=== PATIENT | male | born 1940 | race American Indian/Alaskan Native ===

== ENCOUNTER 2022-06-04 15:51 | Emergency (ER) | payer MEDICARE, SELFPAY ==
--- NOTE | 2022-06-04 16:20 | ED.LOWEXIN ---
HPI - Extremity Injury (Lower) General Chief Complaint: Extremity Injury, Lower Stated Complaint: right hip and knee pain Time Seen by Provider: 06/04/22 16:26 Source: patient Mode of arrival: wheelchair History of Present Illness HPI Narrative: 81-year-old male with a past medical history of right knee replacement in March presenting to the ED complaining of continued right knee and hip pain s/p physical therapy after operation. States stopped PT secondary to pain, has been following with his orthopedic/PCP for this continued pain, had MRI of the hip yesterday (no results yet), and is scheduled for CT of the knee on the . Has been taking meloxicam without relief. Denies new or recent injury, trauma, numbness/tingling Onset (ago): month(s) Related Data Previous Rx's Medication Instructions Recorded cyclobenzaprine 5 mg tablet 5 mg PO Q8H PRN pain (scale score 06/04/22 7-10) 5 days #14 tabs lidocaine 5 % topical patch 1 patch topical DAILY PRN pain #30 06/04/22 (Lidoderm) ea tramadol 50 mg tablet 50 mg PO Q8H PRN pain, severe #9 06/04/22 tabs Allergies Allergy/AdvReac Type Severity Reaction Status Date / Time penicillin G [PENICILLIN G] Allergy Intermediate HIVES Unverified 04/04/20 14:37 Review of Systems Review of Systems: Constitutional: No Fever, No Chills ENT/Mouth: No Ear Pain, No Nasal Congestion, No Sinus Pain, No Hoarseness, No sore throat, No Rhinorrhea, No Swallowing Difficulty Cardiovascular: No Chest Pain, No SOB Respiratory: No Cough, No Sputum Gastrointestinal: No Nausea, No Vomiting, No Diarrhea, No Constipation, No Abdominal pain Genitourinary: No Dysuria, No Urinary Frequency, No Hematuria, No Flank Pain Musculoskeletal: + joint pain, No Myalgias, No Joint Swelling Skin: No Skin Lesions, No rash Neuro: No Weakness, No Numbness, No Paresthesias Yes all other systems are reviewed and are negative Constitutional: Constitutional: Reports as per [facility] Past Medical History Attestation statement: The following information was validated with the patient. Social History Social History Advance Directives: No Advance Directives Information Provided: Yes Physical Exam Vital Signs: Vital Signs: Last Vital Signs Temp 97.6 F 06/04/22 16:21 Pulse 89 06/04/22 16:21 Resp 18 06/04/22 16:21 BP 169/78 H 06/04/22 16:21 Pulse Ox 97 06/04/22 16:21 O2 Del Method 06/04/22 16:21 BMI result Body Mass Index 36.6 Const: General: cooperative, healthy appearing and no acute distress Orientation/consciousness: patient oriented x3 Limitations: no limitations HEENT: Head: Yes normal to inspection and Yes atraumatic Ears: hearing grossly normal bilaterally General nose exam: Normal external nose present Face and sinus: Yes normal facial exam Eyes: General: appearance normal, both eyes and all related structures EOM: EOMs intact bilaterally Neck: Neck: Yes normal visual inspection and Yes no meningeal signs Resp: Effort & Inspection: normal respiratory effort and no respiratory distress Cardio: Rate: regular rate Heart sounds: S1 normal heart sound present and S2 normal heart sound present Peripheral pulses: Peripheral pulses 2+ throughout GI: Inspection: Yes normal to inspection Palpation (GI): Soft to palpation, nontender, no guarding and not rigid Skin: Rashes: no rashes Wounds: no wounds Neuro: General: patient oriented x3, tone normal and no meningeal signs Gait exam (Neuro): Normal gait present Extrem: Other: Right hip nontender to palpation, full range of motion intact. + old surgical scar noted to right knee, mildly tender to palpation, full range of motion intact. Neurovascularly intact distally MDM - Extremity Injury (Lower) MDM Narrative Medical decision making narrative: 81-year-old male with a past medical history of right knee replacement in March presenting to the ED complaining of continued right knee and hip pain s/p physical therapy after operation. On exam vital signs stable, NAD, nontoxic-appearing, physical exam as above. Concern for MSK pain/strain vs arthritic changes. Concern for pain due to muscles that have not been used for years. Low suspicion for fracture, no evidence of infarction/septic joint Pain management, recommended to continue follow-up with a specialists Medical Records Attestation: I reviewed the patient's medical records. Lab Data Attestation: I reviewed the patient's lab results. Discharge Plan Discharge Clinical Impression: Knee pain, Hip pain Patient Disposition: Home, Self-Care Instructions: Knee Pain (ED), Hip Pain (ED) Additional Instructions: Continue to follow up with your specialist. Flexeril as a muscle relaxer, take at night as it makes you drowsy, do not drive, drink alcohol, or operate machinery while taking Additional treatment goals and opiate pain medication, do not drive, drink alcohol, or operate anything while taking. Apply ice or heat. Continue taking previously prescribed medications Prescriptions: New lidocaine [Lidoderm] 5 % adhesive patch,medicated 1 patch topical DAILY MDD remove after 12 hours PRN (Reason: pain) Qty: 30 0RF Rx Instructions: leave on most painful area for up to 12 hrs cyclobenzaprine 5 mg tablet 5 mg PO Q8H PRN (Reason: pain (scale score 7-10)) 5 Days Qty: 14 0RF tramadol 50 mg tablet 50 mg PO Q8H PRN (Reason: pain, severe) Qty: 9 0RF Referrals: [facility] [place] [facility] [Provider Group] Interventions: ED Discharge Assessment Last Done: 06/04/22 16:35
[2022-06-04 16:21] VITALS: BP 169/78; PULSE 89; RESP 18; TEMP 36.4; O2SAT 97; BMI 36.6
[2022-06-04] MEDS: Cyclobenzaprine HCl 10 MG TABLET PO (16:33)
== END 2022-06-04 16:40 | disposition home or self-care (01) ==
LOC: HO.ED 16:34
PROVIDERS: Emergency Provider Emergency Medicine
DX: M25.561 Pain in right knee (principal); M25.551 Pain in right hip; Z79.899 Other long term (current) drug therapy
CPT/HCPCS: 99283

== ENCOUNTER 2023-01-31 06:51 | Emergency (ER) | payer MEDICARE, SELFPAY ==
--- NOTE | ~2023-01-31 | XR_ITS ---
EXAMINATION: XR CHEST CLINICAL INFORMATION: Shortness of breath. COMPARISON: None available. TECHNIQUE: Frontal view of the chest was obtained. FINDINGS: No significant abnormality is noted involving the heart, lungs, mediastinum, bony thorax or soft tissues. XR/XR chest 1V IMPRESSION: No acute cardiopulmonary process.
[2023-01-31 06:52] VITALS: BP 155/76; PULSE 101; RESP 18; TEMP 36.9; O2SAT 95; BMI 35.4
--- NOTE | 2023-01-31 07:04 | ECG_ITS ---
Test Reason : TACHACARDIC Blood Pressure : / mmHG Vent. Rate : 091 BPM Atrial Rate : 091 BPM P-R Int : 194 ms QRS Dur : 106 ms QT Int : 350 ms P-R-T Axes : 039 024 038 degrees QTc Int : 430 ms Normal sinus rhythm Low voltage QRS Incomplete right bundle branch block Borderline ECG No previous ECGs available Referred By: Otilia Luevano Electronically Signed By:Leonardo Antonio
[2023-01-31 07:16] LABS: COVID-19 Test Positive (Negative); IDNOW Serial# 6674DD1D
[2023-01-31 07:28] VITALS: BP 151/71; PULSE 94; RESP 16; TEMP 37.1; O2SAT 96
--- NOTE | 2023-01-31 07:30 | PC.NURSE ---
pt a&ox3, vss, pt states that his cough is more harsh than usual, lung sounds clear bilaterally upon auscultation, pt states 0/10 pain level but states that he has a sore throat, call jacobson placed within reach, will continue to monitor.
[2023-01-31 07:37] VITALS: O2SAT 96
--- NOTE | 2023-01-31 07:46 | PC.NURSE ---
pt a&ox3, vss, nsr on the monitoring analyst, provider bedside doing initial assessment, pt coming in because he is looking for medication to relieve symptoms of covid, provider notifed pt that we do not give this medication in the ED but pt states that when his came in the other day she received this medication in the ED.
--- NOTE | 2023-01-31 07:54 | ED_ITS ---
HPI - URI/Sore Throat General Chief Complaint: Upper Respiratory Symptoms Stated Complaint: covid + rapid heart beat fever Time Seen by Provider: 01/31/23 07:04 Source: patient Mode of arrival: ambulatory History of Present Illness HPI Narrative: 82-year-old male with history of diabetes presents with complaints of flu-like symptoms, positive COVID exposure from his on 01/27 and states that he tested positive all in 01/28 and found to be COVID positive. Patient is taking all of his medications at present and is requesting Paxlovid. Related Data Previous Rx's Medication Instructions Recorded cyclobenzaprine 5 mg tablet 5 mg PO Q8H PRN pain (scale score 06/04/22 7-10) 5 days #14 tabs lidocaine 5 % topical patch 1 patch topical DAILY PRN pain #30 06/04/22 (Lidoderm) ea tramadol 50 mg tablet 50 mg PO Q8H PRN pain, severe #9 06/04/22 tabs Allergies Allergy/AdvReac Type Severity Reaction Status Date / Time penicillin G [PENICILLIN G] Allergy Intermediate HIVES Unverified 04/04/20 14:37 Review of Systems Review of Systems: Pertinent positives and negatives as stated in HPI PMFSH Past Medical History Source: nursing notes reviewed Medical History Aortic aneurysm Social History Social History Alcohol intake: current Alcohol intake frequency: holidays/special occasions only Smoked in Last 30 Days: No Use of substances other than those prescribed or required for medical reasons: No Advance Directives: No Advance Directives Information Provided: Yes Physical Exam Vital Signs: Vital Signs: Last Vital Signs Temp 98.7 F 01/31/23 07:28 Pulse 94 01/31/23 07:28 Resp 16 01/31/23 07:28 BP 151/71 H 01/31/23 07:28 Pulse Ox 96 01/31/23 07:37 O2 Del Method Room Air 01/31/23 07:37 BMI result Body Mass Index 35.4 VITAL SIGNS: Reviewed. GENERAL: Well developed, well nourished, in no acute distress. HEAD: Normocephalic/atraumatic EYES: PERRLA, EOMI EARS: Ext canals without abnormality NOSE: Nares patent bilateral OROPHARYNX: no oral lesions noted, posterior pharynx clear and non-erythematous without noted tonsillar enlargement/erythema/exudates NECK: Supple, no adenopathy LUNGS: Normal breath sounds. No adventitious sounds or accessory muscle use. SpO2<96> CARDIOVASCULAR: Regular rate and rhythm without noted murmurs, no JVD or lower extremity edema. ABDOMEN: Soft, non-tender, non-distended with bowel sounds MUSCULOSKELETAL: No tenderness, deformities, or effusions noted on gross inspection. EXTREMITIES: No cyanosis, clubbing or edema. SKIN: Inspection of the skin reveals no rashes NEUROLOGIC: Alert and oriented x 4. Strength and sensation to light touch were grossly intact x 4. Medical Decision Making Medical Decision Making [facility] Narrative: 82-year-old male with history and clinical presentation consistent with viral syndrome, DDX: Viral syndrome, COVID, pneumonia, CHF. I discussed with the patient that he is out of the window for treatment initiation given 72 hours, I also discussed with him the limitations of the medication in terms of symptom reduction by 24 hours and that there are a host of medication interactions. Patient otherwise denies any chest pain/palpitations and denies any GI or symptoms. I reviewed all investigations, hematologic indices demonstrate normocytic anemia likely associated with chronic disease as there is no history or clinical findings bleeding, mild leukopenia and thrombocytopenia that are likely associated with viral illness. I reviewed chemistry indices which appear to be grossly within normal limits without evidence of ANU or electrolyte derangements and liver enzymes are within normal limits. COVID-19 is positive. Is my interpretation that patient is experiencing viral syndrome and is COVID positive but out of the window for Paxlovid. Differential Diagnosis Differential Diagnoses: The differential diagnosis associated with the presentation includes Please see the discussion above Lab Data [facility] Lab Attestation statement: I reviewed the patient's lab results. Please see the discussion above 01/31/23 07:54 01/31/23 07:54 Labs: Lab Results 01/31/23 01/31/23 01/31/23 Range/Units 07:01 07:54 07:54 WBC 4.7 L (4.8-10.8) X10*3/uL RBC 4.37 L (4.60-5.80) X10*6/uL Hgb 12.6 L (14.0-18.0) g/dl Hct 37.8 L (42.0-52.0) % MCV 86.5 (80.0-98.0) fL MCH 28.8 (27.0-33.0) pg MCHC 33.3 (31.0-36.0) g/dl RDW 13.3 (11.0-16.0) % Plt Count 122 L (160-400) X10*3/uL MPV 12.6 H (9.4-12.4) fL Immature Gran % (Auto) 0.6 H (0.0-0.4) % Neut % (Auto) 65.4 (45-73) % Lymph % (Auto) 13.8 L (20-40) % [place] % (Auto) 17.6 H (2-11) % Eos % (Auto) 1.5 (0-4) % Baso % (Auto) 1.1 (0-2) % Lymph # (Auto) 0.7 L (1.2-4.9) X10*3/uL [place] # (Auto) 0.8 (0.1-1.2) X10*3/uL Eos # (Auto) 0.1 (0.0-0.4) X10*3/uL Baso # (Auto) 0.1 (0.0-0.2) X10*3/uL Abs Immat Gran (auto) 0.03 (0.00-0.03) X10*3/uL Absolute Neuts (auto) 3.1 (2.0-8.3) x10*3/uL Absolute Nucleated RBC 0.000 (0.0-0.012) X10*3/uL Nucleated RBC % (auto) 0.0 (0.0-0.2) /100WBC Sodium 139 (135-145) mmol/L Potassium 4.5 (3.3-5.1) mmol/L Chloride 105 (96-108) mmol/L Carbon Dioxide 23 (22-29) mmol/L Anion Gap 16 (12-20) BUN 20 H (9-16) mg/dL Creatinine 1.29 (0.5-1.4) mg/dL Estim Creat Clear Calc 54.6 Estimated GFR 53 Random Glucose 168 H (60-115) mg/dL Calcium 9.8 (8.4-10.2) mg/dL Total Bilirubin 0.5 (0.0-1.0) mg/dL AST 30 (5-37) U/L ALT 26 (0-40) U/L Alkaline Phosphatase 88 (39-117) U/L B-Natriuretic Peptide (<100) pg/mL Total Protein 7.0 (6.5-8.0) g/dL Albumin 3.8 (3.5-5.0) g/dL COVID-19 ([facility]) Positive A (Negative) COVID-19 Clin Com See Note 01/31/23 Range/Units 07:54 WBC (4.8-10.8) X10*3/uL RBC (4.60-5.80) X10*6/uL Hgb (14.0-18.0) g/dl Hct (42.0-52.0) % MCV (80.0-98.0) fL MCH (27.0-33.0) pg MCHC (31.0-36.0) g/dl RDW (11.0-16.0) % Plt Count (160-400) X10*3/uL MPV (9.4-12.4) fL Immature Gran % (Auto) (0.0-0.4) % Neut % (Auto) (45-73) % Lymph % (Auto) (20-40) % [place] % (Auto) (2-11) % Eos % (Auto) (0-4) % Baso % (Auto) (0-2) % Lymph # (Auto) (1.2-4.9) X10*3/uL [place] # (Auto) (0.1-1.2) X10*3/uL Eos # (Auto) (0.0-0.4) X10*3/uL Baso # (Auto) (0.0-0.2) X10*3/uL Abs Immat Gran (auto) (0.00-0.03) X10*3/uL Absolute Neuts (auto) (2.0-8.3) x10*3/uL Absolute Nucleated RBC (0.0-0.012) X10*3/uL Nucleated RBC % (auto) (0.0-0.2) /100WBC Sodium (135-145) mmol/L Potassium (3.3-5.1) mmol/L Chloride (96-108) mmol/L Carbon Dioxide (22-29) mmol/L Anion Gap (12-20) BUN (9-16) mg/dL Creatinine (0.5-1.4) mg/dL Estim Creat Clear Calc Estimated GFR Random Glucose (60-115) mg/dL Calcium (8.4-10.2) mg/dL Total Bilirubin (0.0-1.0) mg/dL AST (5-37) U/L ALT (0-40) U/L Alkaline Phosphatase (39-117) U/L B-Natriuretic Peptide 22 (<100) pg/mL Total Protein (6.5-8.0) g/dL Albumin (3.5-5.0) g/dL COVID-19 ([facility]) (Negative) COVID-19 Clin Com Independent Interpretation I performed an independent interpretation of an: EKG Interpretation: Normal sinus rhythm, HR-91, no STEMI, UT/QRS/QTC is within normal limits. Radiology Impression Radiologist Impression: No pneumonia or pulmonary congestion, otherwise my interpretation is in agreement with radiology's impression. Discharge Plan Discharge Clinical Impression: Viral syndrome, Lab test positive for detection of COVID-19 virus Patient Disposition: Home, Self-Care Instructions: Viral Syndrome (ED), COVID-19 (Coronavirus Disease 2019) (ED) Additional Instructions: 1. Resume all home medications as prescribed. 2. Recommend [id number] Tylenol/ibuprofen as needed for body aches, temperatures greater than 100.4. Also recommend [id number] cough suppressant. 3. Follow-up on Wednesday with your primary care provider via telemedicine appointment for re-evaluation further outpatient management. You have been diagnosed with COVID-19 which you are aware of since , 01/28, current CDC recommendations are isolation for 5 days from onset of symptoms and then if you have persistent cough and need to go into public areas you should wear a mask. Return to the ER for any worsening symptoms. Prescriptions: No Action lidocaine [Lidoderm] 5 % adhesive patch,medicated 1 patch topical DAILY MDD remove after 12 hours PRN (Reason: pain) Qty: 30 0RF Rx Instructions: leave on most painful area for up to 12 hrs cyclobenzaprine 5 mg tablet 5 mg PO Q8H PRN (Reason: pain (scale score 7-10)) 5 Days Qty: 14 0RF tramadol 50 mg tablet 50 mg PO Q8H PRN (Reason: pain, severe) Qty: 9 0RF Referrals: DUNIA MACEDO [Primary Care Provider] -
[2023-01-31 08:01] LABS: MANUAL DIFF FLAG NO
[2023-01-31 08:15] LABS: Alanine Aminotransferase 26 U/L (0-40); Albumin Level 3.8 g/dL (3.5-5.0); Alkaline Phosphatase 88 U/L (39-117); Anion Gap 16 (12-20); Aspartate Amino Transferase 30 U/L (5-37); Bilirubin Total 0.5 mg/dL (0.0-1.0); Blood Urea Nitrogen 20 mg/dL (9-16); Calcium 9.8 mg/dL (8.4-10.2); Carbon Dioxide 23 mmol/L (22-29); Chloride 105 mmol/L (96-108); Creatinine Clr Calc Pharmacy 54.6; Estimated Glomerular Filt Rate 53; Glucose Random 168 mg/dL (60-115); Potassium 4.5 mmol/L (3.3-5.1); Sodium 139 mmol/L (135-145)
[2023-01-31 08:21] LABS: B Type Natriuretic Peptide 22 pg/mL (<100); Basophils Absolute Auto 0.1 X10*3/uL (0.0-0.2); Basophils Percent Auto 1.1 % (0-2); Eosinophils Absolute Auto 0.1 X10*3/uL (0.0-0.4); Eosinophils Percent Auto 1.5 % (0-4); Hematocrit 37.8 % (42.0-52.0); Hemoglobin 12.6 g/dl (14.0-18.0); Imm Gran Abs Auto 0.03 X10*3/uL (0.00-0.03); Imm Gran Pct Auto 0.6 % (0.0-0.4); Lymphocytes Absolute Auto 0.7 X10*3/uL (1.2-4.9); Lymphocytes Percent Auto 13.8 % (20-40); Mean Corpuscular HGB Conc 33.3 g/dl (31.0-36.0); Mean Corpuscular Hemoglobin 28.8 pg (27.0-33.0); Mean Corpuscular Volume 86.5 fL (80.0-98.0); Mean Platelet Volume 12.6 fL (9.4-12.4); Monocytes Absolute Auto 0.8 X10*3/uL (0.1-1.2); Monocytes Percent Auto 17.6 % (2-11); Neutrophils Absolute Auto 3.1 x10*3/uL (2.0-8.3); Neutrophils Percent Auto 65.4 % (45-73); Platelet Count 122 X10*3/uL (160-400); Red Blood Count 4.37 X10*6/uL (4.60-5.80); Red Cell Distribution Width 13.3 % (11.0-16.0); White Blood Count 4.7 X10*3/uL (4.8-10.8)
== END 2023-01-31 09:05 | disposition home or self-care (01) ==
PROVIDERS: Emergency Provider Student in an Organized Health Care Education/Training Program; PCP Internal Medicine
DX: U07.1 COVID-19 (principal); B34.9 Viral infection, unspecified; R00.2 Palpitations; R06.02 Shortness of breath; Z79.899 Other long term (current) drug therapy
CPT/HCPCS: 36415; 71045; 80053; 83880; 85025; 87635; 93005; 99284; 99285

== ENCOUNTER → 2023-01-31 07:04 | Outpatient (BNV) | payer MEDICARE, SELFPAY | PROVIDERS: Emergency Provider Student in an Organized Health Care Education/Training Program; PCP Internal Medicine; Visit Provider Internal Medicine Cardiovascular Disease | DX: R00.0 Tachycardia, unspecified (principal) | CPT/HCPCS: 93010 ==